=== PATIENT | female | born 1955 | race Caucasian/White ===

== ENCOUNTER 2016-12-20 09:19 | Outpatient (CLI) | payer OTHER ==
[2015-03-22 10:45] VITALS: BP 108/70
== END 2016-12-20 09:25 ==
LOC: LAB 09:19
PROVIDERS: ATTEND Family Medicine
DX: E78.2 Mixed hyperlipidemia (principal)
CPT/HCPCS: 36415; 80053; 80061

== ENCOUNTER 2017-02-20 18:43 | Emergency (ER) | payer OTHER ==
--- NOTE | 2017-02-20 19:03 | ED Physician Documentation ---
General Adult - HISTORIAN Historian: patient - HPI Stated Complaint: low back pain going down left leg Chief Complaint: Low Back Pain/ Injury Onset: other (has occurred several weeks ago) Timing: still present, worse Severity: moderate Further Comments: yes (Patient has had some problems with mild left back buttucks area. Today get progressivly worse. No precipitating factor. Walking or sittng joseph it worse.) - PAST HX Past History: hypertension, other (hyperlipdemia) Surgeries/Procedures: BTL, hysterectomy, other (appendectomy, adnoidectocy) Immunizations: referred to PCP - SOCIAL HX Smoking History: non-smoker Alcohol Use: none Drug Use: none - FAMILY HX Family History: No - VITAL SIGNS Vital Signs: Vital Signs Temp Pulse Resp BP Pulse Ox 73 16 149/84 99 02/20/17 18:45 02/20/17 18:45 02/20/17 18:45 02/20/17 18:45 - REVIEWED ASSESSMENTS Nursing Assessment Reviewed: Yes Vitals Reviewed: Yes <Salomón Guzman - Last Filed: 02/20/17 19:14> - ROS CONST: no problems EYES/ENT: none CVS/RESP: none GI/: none MS/SKIN/LYMPH: other (low back pain with sciatica) - VITAL SIGNS Vital Signs: Vital Signs Temp Pulse Resp BP Pulse Ox 98.4 F 80 16 129/75 99 02/20/17 19:50 02/20/17 19:50 02/20/17 19:50 02/20/17 19:50 02/20/17 19:50 <Hernandez Noguera - Last Filed: 02/20/17 20:26> - PAST HX Allergies/Adverse Reactions: Allergies Allergy/AdvReac Type Severity Reaction Status Date / Time No Known Drug Allergies Allergy Verified 02/20/17 18:52 Home Medications: Ambulatory Orders Medication Instructions Recorded Aspirin [Aspir 81] 81 mg PO QDAY u2 07/17/14 Omeprazole 20 mg PO DAILY 07/17/14 Progress - Progress Progress: Toradol 60 mg IM Flexeril 10 mg po sx improved/resolved. f/u pcp <Hernandez Noguera - Last Filed: 02/20/17 20:26> ED Results Lab/Radiology - Orders Orders: ED Orders Category Date Time Status Cyclobenzaprine HCl [Flexeril] Med 02/20/17 19:08 Discontinued 5 mg PO NOW ONE Ketorolac Tromethamine [Toradol] Med 02/20/17 19:07 Discontinued 60 mg IM NOW ONE <Hernandez Noguera - Last Filed: 02/20/17 20:26> General Adult Physical Exam - PHYSICAL EXAM GENERAL APPEARANCE: moderate distress RESPIRATORY: no resp distress, chest non-tender, breath sounds normal. No: wheezes, rales, rhonchi CVS: reg rate & rhythm, heart sounds normal, equal pulses ABDOMEN: soft, no organomegaly, normal bowel sounds, no distension, non-tender BACK: no CVA tenderness, other (tenderness over the right buttock sciatica area , no bony abnl noted. ) SKIN: warm/dry, normal color EXTREMITIES: non-tender, normal range of motion NEURO: oriented X3, CN's nml as tested, motor nml <Salomón Guzman - Last Filed: 02/20/17 19:14> Discharge <Salomón Guzman - Last Filed: 02/20/17 19:14> Decision to Admit: NO Decision Time: 19:50 <Hernandez Noguera - Last Filed: 02/20/17 20:26> Clincal Impression: Back pain Qualifiers: Back pain location: low back pain Chronicity: acute Back pain laterality: right Sciatica presence: with sciatica Sciatica laterality: sciatica of right side Qualified Code(s): M54.41 - Lumbago with sciatica, right side Referrals: Lisa Price MD [Primary Care Provider] - 2 Days Home Medications: Ambulatory Orders Aspirin [Aspir 81] 81 mg PO QDAY u2 07/17/14 Omeprazole 20 mg PO DAILY 07/17/14 Condition: Good Disposition: 01 HOME, SELF-CARE
[2017-02-20] MEDS ORDERED: KETOROLAC TROMETHAMINE 60 MG/2 ML VIAL IM ONE (19:07)
[2017-02-20] MEDS ORDERED: CYCLOBENZAPRINE HCL 5 MG TABLET PO ONE (19:08)
[2017-02-20 20:06] VITALS: BP 129/75
== END 2017-02-20 19:50 | disposition home or self-care (01) ==
LOC: ED 18:43
DX: M54.41 Lumbago with sciatica, right side (principal)
CPT/HCPCS: 96372; 99283; J1885

== ENCOUNTER 2017-03-05 10:35 | Outpatient (CLI) | payer OTHER ==
[~2017-03-05 10:35] MED LIST: 0.9 % SODIUM CHLORIDE PF 10 ML VIAL IJ ONE; Lidocaine 1% 5ml(IM or SUTURE)(PAIN CLINIC) ONE; TRIAMCINOLONE ACETONID 40MG/ML VIAL ONE
--- NOTE | 2017-03-07 10:12 | HISTORY AND PHYSICAL REPORT ---
REFERRING PHYSICIAN: Dr. Lisa Price Dear Dr. Price: HISTORY OF PRESENT ILLNESS: I had the opportunity of seeing Lyubov Diaz today as an outpatient at [facility]. Lyubov is a delightful 61-year-old white female who presents with acute left-sided low back pain and pain radiating down the left leg to the posterior lateral thigh and lateral calf. She tells me that she has had some mild back pain on and off for years but nothing limiting and without accident or injury. Approximately 1 month ago, she began having low back pain radiating to the left gluteal fold and posterior thigh at night and since that time, it has been getting quite a bit worse. She was started on a Medrol Dosepak and realized some improvement but, at this point, the symptoms are returning. She has classic L5 radiculitis and symptoms of sciatica. She denies pain on the right. She denies symptoms of neurogenic claudication. She denies incontinence of bowel or bladder. She rates her symptoms as severe as 10 over 10 on the visual analog scale or as little as 3 over 10 on the visual analog scale with rest. Her symptoms are worse with activity and worse with standing, walking, bending, and twisting. PAST MEDICAL HISTORY: 1. History of hypertension. 2. High cholesterol. 3. GERD. PAST SURGICAL HISTORY: 1. Tonsillectomy. 2. Appendectomy. 3. Tubal ligation. 4. Hysterectomy. 5. Fifth digit fracture repair. CURRENT DAILY MEDICATIONS: 1. Pravastatin 40 mg daily. 2. Lisinopril 20 mg daily. 3. Aspirin 81 mg daily. 4. Omeprazole 20 mg daily. 5. Tramadol 50 mg every 4 hours p.r.n. pain. 6. Multivitamin daily. ALLERGIES: She has no known drug allergies. SOCIAL HISTORY: She has never used tobacco. She drinks alcohol socially, approximately 4 times per year. She denies recreational drugs. She has been for the past 17 years. She has no children. She lives at home with her . She is not currently employed. 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 She obtained a BA degree. She retired in 2013. She is not currently disabled. FAMILY HISTORY: Father with a stroke. Two aunts with cancer. REVIEW OF SYSTEMS: In the past month or so, she has had no complaints. Her pain is worse bending, twisting, getting up from a chair, getting up in the morning or in any position for too long. Pain is improved with lying down, standing, sitting, and walking. PHYSICAL EXAMINATION: Vital Signs: BP: 127/72, P: 68, R: 20, oxygen saturation is 98% on room air. General: The patient is well nourished, well developed, and in no apparent distress. Awake, alert, and oriented. HEENT: Pupils are equal, round, and reactive to light and accommodation. Extraocular movements intact. No facial droop. Neck: There is full range of motion of the cervical spine. No evidence of adenopathy. Thyroid is nontender, no enlarged. Carotids are without bruits. Chest: Clear to auscultation bilaterally. Normal. Chest excursion. Heart: Regular rate and rhythm without murmur. Abdomen: Benign. Normoactive bowel sounds. Motor/sensory: Intact in the upper and lower extremities. Moves all extremities freely. Back: There is a positive straight leg raise on the left. Negative straight leg raise on the right. Reflexes are 2+ and equal at patellar tendons and Achilles tendon. Strength is 5/5 and equal in lower extremities. ASSESSMENT: Sciatica, likely L5 radiculitis. PLAN: Left L5 epidural steroid injection under fluoroscopy and I will order an MRI study. I will follow this nice lady up next month. Dr. Price, thank you very much for allowing me to take part in the care of this nice lady. I appreciate the opportunity to take part in the care of your patients. cc: Dr. Lisa STEVENS
--- NOTE | 2017-03-07 10:15 | LESI WITH FLUORO ---
REFERRING PHYSICIAN: Dr. Lisa Price OPERATIVE PROCEDURE: Left L5-S1 epidural steroid injection with fluoroscopic guidance. DESCRIPTION OF PROCEDURE: The risks and benefits were discussed with the patient including the risk of infection, bleeding, nerve injury, and headache, as well as the risks of steroid exposure causing hyperglycemia, hypertension, osteoporosis, or increased infectious risks. The patient understood these risks and agreed to proceed. Consent was obtained prior to the procedure. The patient was placed in the prone position on the fluoroscopy table with a pillow underneath the abdomen to afford anterior flexion of the lumbar spine. The low back was cleaned and a sterile drape was applied. An 18-gauge thin wall Tuohy epidural needle was advanced with normal saline loss of resistance technique and direct fluoroscopic guidance with a left paramedian approach at the L5-S1 level. On obtaining loss of resistance to normal saline, it was verified that there was no aspiration of CSF or blood. Furthermore, the needle tip location was verified with lateral and AP fluoroscopic views. Omnipaque 240 myelogram dye were injected through the epidural needle. The distribution of the dye was noted to be within the desired distribution within the lumbar epidural space. Triamcinolone acetate and 1% lidocaine was injected into the epidural space. The stylet was replaced in the needle and the needle was removed from the back. The patient tolerated the procedure well. The back was cleaned and a bandage was applied over the injection site. The patient was monitored for 20 minutes following the procedure. during this time the vital signs remained stable and the patient experienced no adverse sequelae. The patient was discharged in good condition. ASSESSMENT: Sciatica, likely L5 radiculitis. PLAN: Left L5-S1 epidural steroid injection with fluoroscopic guidance. FOLLOWUP: Return to clinic if problems develop or worsen. cc: Dr. Lisa STEVENS
== END 2017-03-05 10:36 ==
LOC: OUT 10:35
PROVIDERS: ATTEND Anesthesiology Pain Medicine
DX: M54.42 Lumbago with sciatica, left side (principal)
CPT/HCPCS: J3301; Q9966; 99213

== ENCOUNTER 2017-04-02 09:11 | Outpatient (CLI) | payer OTHER ==
--- NOTE | 2017-04-03 13:40 | LESI WITH FLUORO ---
SUBJECTIVE: I had the pleasure of following up with Lyubov Diaz today as an outpatient at [facility]. This is a delightful 61-year-old white female with left lower extremity pain. I provided her with a left L5-S1 epidural injection last month and her symptoms are much improved. The MRI has been delayed by her insurance company. She continues to have some back and left lower extremity pain but she is sleeping better and she reports better than 50% improvement. PLAN: At this point, I am going to repeat a left L5-S1 epidural injection. I will follow her up next month. OPERATIVE PROCEDURE: Left L5-S1 epidural steroid injection with fluoroscopic guidance. DESCRIPTION OF PROCEDURE: The risks and benefits were discussed with the patient including the risk of infection, bleeding, nerve injury, and headache, as well as the risks of steroid exposure causing hyperglycemia, hypertension, osteoporosis, or increased infectious risks. The patient understood these risks and agreed to proceed. Consent was obtained prior to the procedure. The patient was placed in the prone position on the fluoroscopy table with a pillow underneath the abdomen to afford anterior flexion of the lumbar spine. The low back was cleaned and a sterile drape was applied. An 18-gauge thin wall Tuohy epidural needle was advanced with normal saline loss of resistance technique and direct fluoroscopic guidance with a left paramedian approach at the L5-S1 level. On obtaining loss of resistance to normal saline, it was verified that there was no aspiration of CSF or blood. Furthermore, the needle tip location was verified with lateral and AP fluoroscopic views. Omnipaque 240 myelogram dye were injected through the epidural needle. The distribution of the dye was noted to be within the desired distribution within the lumbar epidural space. Triamcinolone acetate and 1% of lidocaine was injected into the epidural space. The stylet was replaced in the needle and the needle was removed from the back. The patient tolerated the procedure well. The back was cleaned and a bandage was applied over the injection site. The patient was monitored for 20 minutes following the procedure. during this time the vital signs remained stable and the patient experienced no adverse sequelae. The patient was discharged in good condition. ASSESSMENT: 1. Lumbar intervertebral disc disorder with myelopathy. 2. Lumbar intervertebral disc derangement/displacement with radicular pain but not myelopathy FOLLOW UP: Return to clinic if problems develop or worsen. Thank you very much for allowing me to take part in the care of this nice lady. I appreciate the opportunity to take part in the care of your patients. cc: Dr. Lisa STEVENS
== END 2017-04-02 09:12 ==
LOC: OUT 09:11
PROVIDERS: ATTEND Anesthesiology Pain Medicine
DX: M51.16 Intervertebral disc disorders with radiculopathy, lumbar region (principal)
CPT/HCPCS: J3301; Q9966; 99214

== ENCOUNTER 2017-05-07 | Outpatient (CLI) | payer OTHER ==
--- NOTE | 2017-05-07 13:24 | PAIN CLINIC PROGRESS NOTES ---
REASON FOR VISIT: I had the opportunity of following up with Lyubov Diaz today as an outpatient at [facility]. This is a delightful 61-year- old white female who presented with lumbar radiculitis. I treated her with 2 epidural steroid injections and her symptoms have greater than 90% improved. She is no longer having any back or leg pain. PLAN: At this point, I have talked about home exercise. I have talked about activities to avoid and that I would see her if her symptoms should worsen or reoccur. She is in agreement and I will follow her up on a p.r.n. basis. Thank you so much for allowing me to take part in the care of this nice lady. I appreciate the opportunity to take part in the care of your patients. cc: Dr. Lisa STEVENS
== END 2017-05-07 09:10 ==
CPT/HCPCS: 99212

== ENCOUNTER 2017-06-08 13:02 | Outpatient (CLI) | payer OTHER ==
--- NOTE | 2017-06-11 15:19 | PAIN CLINIC PROGRESS NOTES ---
REASON FOR VISIT: Lyubov comes in today and she has been having recurrent leg pain off and on at left side L5 dermatome. An MRI was obtained and she has a protruding disk at L4 -L5 that is left paraspinal and contacting the descending L5 nerve root. She had profound relief with an epidural steroid injection, enough so that she has been doing quite well. She still is having pain on and off and uses over-the- counter nonsteroidal antiinflammatory medications. PLAN: I did review her MRI and talked to her about treatment options, weight loss, core strengthening, and exercise. At this point, she would like a surgical referral for an opinion on an L4-L5 microdiskectomy. cc: Dr. Lisa STEVENS
== END 2017-06-08 13:04 ==
LOC: OUT 13:02
PROVIDERS: ATTEND Anesthesiology Pain Medicine
DX: M51.26 Other intervertebral disc displacement, lumbar region (principal)
CPT/HCPCS: 99213

== ENCOUNTER 2017-08-06 12:43 | Outpatient (CLI) | payer OTHER | END 2017-08-06 12:44 | LOC: RAD 12:43 | PROVIDERS: ATTEND Family Medicine | DX: M81.0 Age-related osteoporosis without current pathological fracture (principal) | CPT/HCPCS: 77080 ==

== ENCOUNTER 2018-12-17 10:01 | Outpatient (CLI) | payer OTHER ==
[2018-12-17 10:42] LABS: eGFR (Non-African) > 60
== END 2018-12-17 10:03 ==
LOC: LABRHC 10:01
PROVIDERS: ATTEND Family Medicine
DX: M18.0 Bilateral primary osteoarthritis of first carpometacarpal joints (principal); Z13.6 Encounter for screening for cardiovascular disorders; Z00.00 Encounter for general adult medical examination without abnormal findings
CPT/HCPCS: 36415; 80053; 80061

== ENCOUNTER 2018-12-20 09:07 | Outpatient (CLI) | payer OTHER ==
--- NOTE | 2018-12-21 10:27 | Diagnostic Imaging Report ---
HUNG TRAN [facility] [address] [facility] [address] [address] Report Submission Date: Dec 21, 2018 10:17:54 AM DAY SPA MANAGER Patient Study Name: AUDREY NAVARRETE Date: Dec 21, 2018 9:44:51 AM DAY SPA MANAGER Modality Type: DX Gender: F Description: L SPINE 2 OR 3 VIEWS : [birth year] Institution: [facility] Physician: HUNG TRAN Lumbar spine three views History: Pain after fall Findings: Advanced L3-4 and L4-5 degenerative disc disease, grade 1 L4-5 spondylolisthesis, diffuse osteopenia, advanced atherosclerotic disease, and advanced left hip osteoarthritis are observed. There is no fracture. Electronically signed on Dec 21, 2018 10:17:54 AM DAY SPA MANAGER by: Ryan STEVENS
== END 2018-12-20 09:15 ==
LOC: RAD 09:07
PROVIDERS: ATTEND Family Medicine
DX: M81.0 Age-related osteoporosis without current pathological fracture (principal)
CPT/HCPCS: 77080